=== PATIENT | female | born 1945 | race Caucasian/White ===

== ENCOUNTER → 2017-03-11 | Outpatient (CLI) | payer OTHER ==
[2017-03-11 12:52] LABS: BLOOD GAS BASE EXCESS -0.8 mmol/L (-2-2); BLOOD GAS CARBOXYHEMOGLOBIN 1.1 % (0-4); BLOOD GAS HCO3 23 mmol/L (22-26); BLOOD GAS METHEMOGLOBIN 1.2 % (0-2); BLOOD GAS O2 HGB SATURATION 95 % (90-100); BLOOD GAS OXYGEN CONTENT 17.4 Vol % (12.0-20.0); BLOOD GAS PCO2 34 mmHg (38-42); BLOOD GAS PO2 98 mmHg (61-120); BLOOD GAS TOTAL HGB 12.9 G/DL (12.0-16.0); TEMP CORR TO 98.6
[2017-03-11 12:53] LABS: CRITICAL VALUE NO; DRAW SITE RT RADIAL; FIO2 21 %; NUMBER OF ARTERIAL PUNCTURES 1; STAT NO; ULNAR PULSE PRESENT
--- NOTE | 2017-03-15 09:51 | RSPPFT ---
DATE OF PROCEDURE: 03/11/17 COMMENTS: Spirometry shows FVC of 1.8 at 63% of predicted, FEV1 of 1.3 at 65%, FEV1/FVC ratio is decreased. Flow is decreased at FEF 50, FEF 75 and FEF 25-75. There is a mild response after bronchodilator treatment. Lung volumes show residual volume is increased. TLC is increased. Diffusion capacity is mildly decreased. Flow volume loop indicates an obstructive pattern. Room air arterial blood gases show pH of 7.44, PCO2 of 34, PO2 of 98, BiCarb of 23 and O2 Saturation at 95%. IMPRESSION: 1. Mild obstructive lung disease. 2. Mild response after bronchodilator treatment. 3. Lung volumes show hyperinflation and air trapping. 4. Mild decrease in diffusion capacity. 5. Room air arterial blood gases show normal oxygenation.
== END ==
LOC: HRSP 11:51
PROVIDERS: ATTEND Specialist
DX: J44.9 Chronic obstructive pulmonary disease, unspecified (principal)
CPT/HCPCS: 36600; 82805; 94060; 94726; 94729